=== PATIENT | male | born 1985 | race African-American/Black ===

== ENCOUNTER 2019-10-31 15:29 | Emergency (ER) | payer OTHER ==
[2019-10-31 16:21] VITALS: BP 144/80
--- NOTE | 2019-10-31 16:40 | UC ---
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 Hx of GERD and currently on Nexium BID. Nausea and vomitting started yesterday; had 7-10 episodes of vomitting yesterday. Able to keep fluids and food down. States pt was given pepcid last time he was here for GERD and had some relief w/ that med. Also c/o bilat axilla 'itchy' and thinks deodorant used is causing rash. - History of Current Complaint Chief Complaint: [facility]CGI Stated Complaint: ABDOMINAL PAIN Time Seen by Provider: 10/31/19 16:39 Hx Obtained From: Patient Pain Intensity: 5 - Allergy/Home Medications Allergies/Adverse Reactions: Allergies Allergy/AdvReac Type Severity Reaction Status Date / Time No Known Allergies Allergy Verified 10/31/19 16:13 Home Medications: Home Medications Esomeprazole Magnesium [Nexium 24Hr] 1 cap BID PRN 10/31/19 [History Confirmed 10/31/19] PMH/Surg Hx/FS Hx/Imm Hx - Surgical History Surgical History: None - Social History Alcohol Use: None Substance Use Type: None Smoking Status (MU): Heavy Every Day Tobacco Smoker Type: Cigarettes Amount Used/How Often: 1 PPD Physical Exam Vital Signs: Initial Vital Signs Temp 98.1 F 10/31/19 16:14 Pulse 78 10/31/19 16:14 Resp 16 10/31/19 16:14 BP 144/80 10/31/19 16:14 Pulse Ox 100 10/31/19 16:14 Course/Dx - Course Course Of Treatment: Blood work today, cbc and cmp f/u pcp if possible one week. go to ED if worse or new issues. Nexium - please take daily, not as needed. Rx 40mg e-scribed. Rx zofran as well. Reviewed axillary dermatitis -> will start lotrisone. Avoid deoderant until better. May need dermatology referral re L axillary cyst, will check with pcp. Will talk with pcp at recheck re GI issues, may need GI referral, per discretion pcp and pt. qeustions as posed answered to the best of my ability. - Diagnoses Provider Diagnosis: Abdominal pain, Nausea and vomiting, Dermatitis Discharge ED - Sign-Out/Discharge Documenting (check all that apply): Patient Departure All imaging exams completed and their final reports reviewed: No Studies - Discharge Plan Condition: Stable Disposition: HOME Prescriptions: Clotrimazole/Betamethasone* [Lotrisone Cream*] 1 applic TOPICAL BID #1 tube Esomeprazole Magnesium [Nexium] 40 mg PO DAILY #30 cap Ondansetron HCl [Zofran] 4 mg PO Q8H PRN #15 tablet PRN Reason: Nausea Patient Education Materials: Acute Nausea and Vomiting (ED), Abdominal Pain (ED ), Dermatitis (ED) Forms: *Work Release Referrals: Aruna Baron MD [Primary Care Provider] - Additional Instructions: Please follow up with your primary care provider - if possible in the next week. Please go to the Emergency Department for ANY worse or new problems. Hydrate. Blood work today. - Billing Disposition and Condition Condition: STABLE Disposition: Home
[2019-10-31] MEDS ORDERED: Ondansetron ODT TAB* 4 MG PO ONE (17:03)
[2019-11-01 10:36] LABS: ABS Eosinophils 0.1 10^3/ul (0-0.6); ABS Lymphocytes 1.5 10^3/ul (1.0-4.8); ABS Monocytes 0.5 10^3/ul (0-0.8); ABS Neutrophils 8.4 10^3/ul (1.5-7.7); Eosinophil % 0.5 %; Hematocrit 49 % (42-52); Hemoglobin 16.8 g/dL (14.0-18.0); Lymphocyte % 14.7 %; Mean Corpuscular HGB Conc 34 g/dL (31-36); Mean Corpuscular Hemoglobin 28 pg (27-31); Mean Corpuscular Volume 81 fL (80-94); Mean Platelet Volume 8.8 fL (7.4-10.4); Platelet Count 243 10^3/uL (150-450); Red Blood Count 6.13 10^6 /uL (4.18-5.48); Red Cell Distribution Width 14 % (10-15); White Blood Count 10.5 10^3/uL (3.5-10.8)
[2019-11-01 10:43] LABS: Albumin 4.9 g/dL (3.2-5.2); Calcium 10.1 mg/dL (8.6-10.3); Potassium 3.7 mmol/L (3.5-5.0); Total Bilirubin 1.2 mg/dL (0.2-1.0)
[2019-11-01 10:49] LABS: Albumin/Globulin Ratio 1.8 (1-3); BUN/Creatinine Ratio 6.6 (8-20); Globulin 2.7 g/dL (2-4); Total Protein 7.6 g/dL (6.4-8.9)
--- NOTE | 2019-11-01 16:30 | UC ---
- Progress Note Progress Note: CBC and CMP come back from October 31, 2019. Patient was seen here for abdominal pain. The CBC has a slightly elevated number of neutrophils at 8.4 with a normal range is 1.5-7.7. Total white count was normal. The CMP-did have a slightly elevated bilirubin at 1.2 with normal 0.2 -1.0 and slightly elevated ALT of 61 with normal ranges 7-52. Chloride slightly low at 99 normal ranges 101-111. There are no old lab values for comparison. The elevation of total bilirubin and ALT are mild. Nursing to call patient inform him of the results. If the patient is worse with abdominal pain or feels ill he should get reevaluated in the emergency department however if he is not worse than he should follow-up primary care doctor and she get these lab values rechecked by his primary care physician. Course/Dx - Diagnoses Provider Diagnoses: Abdominal pain, Nausea and vomiting, Dermatitis Discharge ED - Sign-Out/Discharge Documenting (check all that apply): Patient Departure All imaging exams completed and their final reports reviewed: No Studies - Discharge Plan Condition: Stable Disposition: HOME Prescriptions: Clotrimazole/Betamethasone* [Lotrisone Cream*] 1 applic TOPICAL BID #1 tube Esomeprazole Magnesium [Nexium] 40 mg PO DAILY #30 cap Ondansetron HCl [Zofran] 4 mg PO Q8H PRN #15 tablet PRN Reason: Nausea Patient Education Materials: Acute Nausea and Vomiting (ED), Abdominal Pain (ED ), Dermatitis (ED) Forms: *Work Release Referrals: Aruna Baron MD [Primary Care Provider] - Additional Instructions: Please follow up with your primary care provider - if possible in the next week. Please go to the Emergency Department for ANY worse or new problems. Hydrate. Blood work today. - Billing Disposition and Condition Condition: STABLE Disposition: Home
== END 2019-10-31 17:33 | disposition home or self-care (01) ==
LOC: UCCORT 15:29
DX: R10.9 Unspecified abdominal pain (principal); R11.2 Nausea with vomiting, unspecified; L30.9 Dermatitis, unspecified; K21.9 Gastro-esophageal reflux disease without esophagitis; F17.210 Nicotine dependence, cigarettes, uncomplicated; Z79.899 Other long term (current) drug therapy
CPT/HCPCS: 36415; 80053; 85025; 99212; A9270-GY; G0463